=== PATIENT | male | born 1975 | race Caucasian/White ===

== ENCOUNTER 2018-03-03 22:21 | Observation (INO) | payer OTHER ==
[2018-03-04 00:36] LABS: ADD MAN DIFF? NO
[2018-03-04 00:43] LABS: BASOPHIL # 0.1 10^3/ul (0.0-0.1); BASOPHILS % 0.6 % (0.0-2.0); EOSINOPHILS # 0.1 10^3/ul (0.0-0.5); EOSINOPHILS % 1.3 % (0.0-7.0); HEMATOCRIT 40.6 % (42.0-52.0); HEMOGLOBIN 13.9 g/dl (14.0-18.0); LYMPHOCYTES # 2.4 10^3/ul (0.8-2.9); LYMPHOCYTES % 22.4 % (15.0-51.0); MEAN CORPUSCULAR HEMOGLOBIN 31.5 pg (29.0-33.0); MEAN CORPUSCULAR HGB CONC 34.2 g/dl (32.0-37.0); MEAN CORPUSCULAR VOLUME 92.1 fl (82.0-101.0); MEAN PLATELET VOLUME 9.9 fl (7.4-10.4); MONOCYTE # 0.9 10^3/ul (0.3-0.9); MONOCYTES % 8.7 % (0.0-11.0); NEUTROPHIL # 7.3 10^3/ul (1.6-7.5); NEUTROPHILS % 66.8 % (39.0-77.0); PLATELET COUNT 204 10^3/UL (140-415); RED BLOOD COUNT 4.41 10^6/ul (4.70-6.10)
[2018-03-04 00:43] LABS: WHITE BLOOD COUNT 10.9 10^3/ul (4.8-10.8)
[2018-03-04 00:58] LABS: CHOLESTEROL 220 mg/dl (100-200); PHOSPHORUS 4.2 mg/dl (2.5-4.9)
[2018-03-04 00:58] LABS: CHOL/HDL RATIO 3.2 RATIO; HDL CHOLESTEROL 67 mg/dl (27-67); LDL CHOLESTEROL,CALCULATED 117 mg/dl; MAGNESIUM 1.9 mg/dl (1.7-2.5); TRIGLYCERIDES 181 mg/dl (0-149)
[2018-03-04 00:59] LABS: CREATINE KINASE 114 IU/L (23-200)
[2018-03-04 01:10] LABS: CK INDEX 0.5; CK-MB 0.52 ng/ml (0.0-2.4); TROPONIN-I < 0.010 ng/ml (0.000-0.120)
[2018-03-04 04:10] LABS: HEMOGLOBIN A1C 5.8 % (0-5.9)
[2018-03-04] MEDS ORDERED: ONDANSETRON 4 MG INJ IV (04:30)
[2018-03-04] MEDS ORDERED: NACL 0.9% 3 ML SYG IV ×3 (04:30)
[2018-03-04] MEDS ORDERED: ACETAMINOPHEN 325 MG TAB PO ×2 (04:30)
[2018-03-04] MEDS ORDERED: NITROGLYCERIN (SL) 0.4 MG TAB SL ×2 (04:30)
[2018-03-04] MEDS ORDERED: ALBUTEROL/IPRATROPIUM (NEB) 3 ML AMP HHN (04:30)
[2018-03-04 08:16] LABS: HEMOGLOBIN A1C 5.7 % (0-5.9)
[2018-03-04 08:28] LABS: CREATINE KINASE 102 IU/L (23-200)
[2018-03-04 08:37] LABS: CK INDEX 0.4; CK-MB 0.37 ng/ml (0.0-2.4); TROPONIN-I < 0.010 ng/ml (0.000-0.120)
[2018-03-04] MEDS: ASPIRIN 81 MG TAB PO (08:42)
[2018-03-04] MEDS: METOPROLOL 25 MG TAB PO (08:43)
[2018-03-04] MEDS: ENOXAPARIN 40 MG/0.4 ML SYG SC (08:43)
== END 2018-03-04 16:25 | disposition home or self-care (01) ==
LOC: MS4 22:21
PROVIDERS: Internal Medicine
DX: R07.89 Other chest pain (principal); Z72.0 Tobacco use
CPT/HCPCS: 71046; 80061; 82550; 82553; 83036; 83735; 84100; 84484; 85025; 93005; 93306; 93350; 99217